=== PATIENT | male | born 1970 | race Two or more races ===

== ENCOUNTER 2022-04-25 11:45 | Inpatient (IN) | payer OTHER ==
[~2022-04-25] VITALS: Ht 165.1 cm; Wt 65.8 kg
[2022-04-26] MEDS ORDERED: CARVEDILOL6.25 MG (14:56)
[2022-04-26] MEDS ORDERED: NASAL MIST126 ML ×2 (14:56→14:57)
[2022-04-26] MEDS ORDERED: HYZAAR 50-12.51 EACH PO (14:57)
[2022-04-26] MEDS ORDERED: KEPRA PO (14:57)
[2022-04-29] MEDS ORDERED: KEPPRA1000 MG PO (09:32)
[2022-05-03] MEDS ORDERED: NEURONTIN300 MG PO (07:07)
[2022-05-03] MEDS ORDERED: PERCOCET 5-3251 EACH PO (07:07)
[2022-05-03] MEDS ORDERED: INTESTINEX680 M1 PO (07:08)
[2022-05-03] MEDS ORDERED: INTEGRA F CAPS1 EACH PO (08:24)
== END 2022-05-03 18:04 | disposition home or self-care (01) | DRG 329 ==
LOC: ADM 11:45 → EDSTATUS 04-26 12:45 → O/R 04-29 07:00 → SURG 04-29 10:45 → SURH 04-29 14:52
PROVIDERS: ADMIT Surgery; ATTEND Surgery
PROC: 0DBP4ZZ Excision of Rectum, Percutaneous Endoscopic Approach (ICD-10-PCS; 2022-04-29)
PROC: 0DTJ4ZZ Resection of Appendix, Percutaneous Endoscopic Approach (ICD-10-PCS; 2022-04-29)
PROC: 0DJD8ZZ Inspection of Lower Intestinal Tract, Via Natural or Artificial Opening Endoscopic (ICD-10-PCS; 2022-04-29)
PROC: 0DTN4ZZ Resection of Sigmoid Colon, Percutaneous Endoscopic Approach (ICD-10-PCS; principal; 2022-04-29 10:45)
DX: K57.20 Diverticulitis of large intestine with perforation and abscess without bleeding (principal); K65.1 Peritoneal abscess; K37 Unspecified appendicitis; D64.9 Anemia, unspecified; G40.909 Epilepsy, unspecified, not intractable, without status epilepticus; F17.200 Nicotine dependence, unspecified, uncomplicated; Z20.822 Contact with and (suspected) exposure to COVID-19

== ENCOUNTER 2023-10-14 13:34 | Emergency (ER) | payer OTHER ==
[~2023-10-14] VITALS: Ht 165.1 cm; Wt 72.6 kg
[~2023-10-14 13:34] MED LIST: CARVEDILOL6.25 MG; HYZAAR 50-12.51 EACH PO; INTEGRA F CAPS1 EACH PO; INTESTINEX680 M1 PO; KEPPRA1000 MG PO; KEPRA PO; NASAL MIST126 ML; NEURONTIN300 MG PO; PERCOCET 5-3251 EACH PO
[2023-10-14 15:47] LABS: HEMATOCRIT 45.9 % (39.0-48.0); HEMOGLOBIN 16.1 g/dL (13-16.00); MEAN CELL VOLUME 95.4 fL (80.0-100.00); MEAN CORPUSCULAR HEMOGLOBIN 33.5 pg (27.00-32.0); MEAN CORPUSCULAR HGB CONC 35.1 g/dl (32.0-36.0); PLATELET COUNT 337 K/uL (150-450); RED BLOOD COUNT 4.81 M/uL (4.00-6.00); RED CELL DISTRIBUTION WIDTH 13.4 % (11.5-14.5)
[2023-10-14 15:48] LABS: PH,URINE 6.5 (5.0-8.0); URINE APPEARANCE Clear; URINE BILIRRUBIN Negative (NEGATIVE); URINE BLOOD Negative; URINE COLOR Yellow; URINE GLUCOSE Negative (NEGATIVE); URINE LEUKOCYTE Negative; URINE NITRATE Negative; URINE PROTEIN Negative (NEGATIVE); URINE UROBILINOGEN 0.2 E.U./dl
[2023-10-14 15:49] LABS: URINE WBC 2.1 uL (0.0-23.2)
[2023-10-14 15:53] LABS: URINE RBC 0.5 uL (0.0-20.8)
[2023-10-14 16:08] LABS: CALCIUM 10.1 mg/dL (8.5-10.1); CREATININE SERUM 0.84 mg/dL (0.70-1.30); GFR 95.22; POTASSIUM 3.61 mEq/L (3.5-5.1)
== END 2023-10-14 18:49 | disposition home or self-care (01) ==
LOC: ER 13:35
PROVIDERS: Nurse Practitioner Family
DX: R10.9 Unspecified abdominal pain (principal); I10 Essential (primary) hypertension; Z88.6 Allergy status to analgesic agent
CPT/HCPCS: 36415; 74177; Q9965

== ENCOUNTER 2024-05-08 11:51 | Emergency (ER) | payer OTHER ==
[~2024-05-08] VITALS: Ht 165.1 cm; Wt 74.8 kg
[2024-05-08] MEDS ORDERED: TRELEGY ELLIPT1 EAC1 (12:13)
[2024-05-08] MEDS ORDERED: AVAPRO300 MG (12:15)
[2024-05-08] MEDS ORDERED: CHLORTHALIDONE25 MG (12:15)
[2024-05-08] MEDS ORDERED: DICY20TA (12:15)
[2024-05-08] MEDS ORDERED: ONDANSETRON HCL 2 MG/ML VIAL ONE (12:54)
[2024-05-08] MEDS ORDERED: FAMOTIDINE/PF 20 MG/2 ML VIAL ONE (12:54)
[2024-05-08] MEDS ORDERED: ONDANSETRON HCL 2 MG/ML VIAL IV ONE (13:00)
[2024-05-08] MEDS ORDERED: 0.9 % SODIUM CHLORIDE 1,000 ML IV ONE (13:00)
[2024-05-08] MEDS ORDERED: FAMOtidine 10 MG/ML (4ML VIAL) IV ONE (13:00)
[2024-05-08 13:26] LABS: HEMATOCRIT 40.5 % (39.0-48.0); HEMOGLOBIN 14.1 g/dL (13-16.00); MEAN CORPUSCULAR HEMOGLOBIN 33.1 pg (27.00-32.0); MEAN CORPUSCULAR HGB CONC 34.9 g/dl (32.0-36.0); PLATELET COUNT 360 K/uL (150-450); RED BLOOD COUNT 4.26 M/uL (4.00-6.00); RED CELL DISTRIBUTION WIDTH 13.6 % (11.5-14.5)
[2024-05-08 14:06] LABS: ALBUMIN 4.2 gm/dL (3.4-5.0); BILIRUBIN TOTAL 0.88 mg/dL (0.3-1.2); CALCIUM 10.3 mg/dL (8.5-10.1); CREATININE SERUM 0.77 mg/dL (0.70-1.30); GFR 104.89; GLOBULINA 4.5 G/DL (2.4-3.5); POTASSIUM 3.75 mEq/L (3.5-5.1); TOTAL PROTEIN 8.7 gm/dL (6.4-8.2)
[2024-05-08 14:27] LABS: URINE APPEARANCE Clear; URINE BILIRRUBIN Negative (NEGATIVE); URINE BLOOD Small; URINE COLOR Yellow; URINE GLUCOSE Negative (NEGATIVE); URINE KETONE Negative (NEGATIVE); URINE LEUKOCYTE Negative; URINE NITRATE Negative; URINE PROTEIN Negative (NEGATIVE); URINE UROBILINOGEN 0.2 E.U./dl
[2024-05-08 14:32] LABS: URINE BACTERIA 8.8 uL (0.0-1933); URINE WBC 2.4 uL (0.0-23.2)
== END 2024-05-08 17:16 | disposition home or self-care (01) ==
LOC: ER 11:53
PROVIDERS: General Practice
DX: K52.9 Noninfective gastroenteritis and colitis, unspecified (principal); I10 Essential (primary) hypertension; K40.90 Unilateral inguinal hernia, without obstruction or gangrene, not specified as recurrent; N20.0 Calculus of kidney; Z88.8 Allergy status to other drugs, medicaments and biological substances; Z87.09 Personal history of other diseases of the respiratory system

== ENCOUNTER 2024-06-14 07:45 | Inpatient (IN) | payer OTHER ==
[~2024-06-14] VITALS: Ht 165.1 cm; Wt 74.8 kg
[~2024-06-14 07:45] MED LIST changes: +AVAPRO300 MG; +CHLORTHALIDONE25 MG; +DICY20TA; +TRELEGY ELLIPT1 EAC1
--- NOTE | 2024-06-14 07:56 | NUR ---
PTE ALERTA Y ORIENTADO X3 EL CUAL AL [place] REFIERE VENIR POR DOLOR EN COSTADO DERECHO. PTE REFIERE QUE ES ATENDIDO POR DRA. BARRERA WIGGINS. SE MIDEN S/V Y SE UBICA.
[2024-06-14] MEDS ORDERED: PANTOPRAZOLE SODIUM 40 MG in 0.9 % SODIUM CHLORIDE 8 ML IV PUSH SCH (09:00)
[2024-06-14] MEDS ORDERED: ONDANSETRON HCL 2 MG/ML VIAL ONE (09:12)
[2024-06-14] MEDS ORDERED: ONDANSETRON HCL 2 MG/ML VIAL IV ONE (09:15)
[2024-06-14] MEDS ORDERED: 0.9 % SODIUM CHLORIDE 1,000 ML IV SCH (09:15)
[2024-06-14] MEDS ORDERED: MEPERIDINE HCL/PF 50 MG/ML VIAL IM ONE (09:15)
--- NOTE | 2024-06-14 09:31 | NUR ---
PTE ALERTA Y ORIENTADO X3, RN VIC EDUCA A PTE SOBRE [place] MEDICO, EL MISMO REFIERE ENTENDER. SE NATALI MUESTRAS DE LAB [facility] MEDIDAS ASEPTICAS Y SE ADMINISTRAN MEDICAMENTOS [facility]ERDA ORDEN MEDICA, SE NOTIFICA ESTUDIO PEDNIENTE.
[2024-06-14 09:36] LABS: HEMATOCRIT 37.8 % (39.0-48.0); HEMOGLOBIN 13.6 g/dL (13-16.00); MEAN CELL VOLUME 92.2 fL (80.0-100.00); MEAN CORPUSCULAR HEMOGLOBIN 33.2 pg (27.00-32.0); PLATELET COUNT 386 K/uL (150-450); RED CELL DISTRIBUTION WIDTH 13.4 % (11.5-14.5)
[2024-06-14 09:37] VITALS: BP 113/77; O2SAT 97
[2024-06-14 10:32] LABS: PARTIAL THROMBOPLASTIN TIME 28.2 SECONDS (22.0-34.0); PROTHROMBIN TIME 10.9 SECONDS (9.0-11.5)
[2024-06-14 10:35] LABS: ALBUMIN 3.7 gm/dL (3.4-5.0); ALKALINE PHOSPHATASE 77 U/L (50-136); ALT/SGPT 33 U/L (12-78); AMYLASE 51 U/L (25-115); ANION GAP 9 (10.0-20.0); AST/SGOT 18 U/L (15-37); BILIRUBIN TOTAL 0.35 mg/dL (0.3-1.2); BILIRUBIN,CONJUGATED < 0.10 mg/dL (0.0-0.2); BILIRUBIN,UNCONJUGATED 0.25 mg/dL (0.0-0.6); BLOOD UREA NITROGEN 16 mg/dL (7-18); BUN CREA RATIO 22 (7.0-25.0); CALCIUM 9.3 mg/dL (8.5-10.1); CARBON DIOXIDE 31 mEq/L (21-32); CHLORIDE 95 mmol/L (98-107); CREATININE SERUM 0.74 mg/dL (0.70-1.30); GFR 109.81; GLOBULINA 3.8 G/DL (2.4-3.5); GLUCOSE FASTING 88 mg/dL (65-100); LIPASE 34 U/L (13-75); OSMOLALITY SERUM 265 MOSM/KG (275-295); POTASSIUM 3.33 mEq/L (3.5-5.1); SODIUM 132 mmol/L (136-145); TOTAL PROTEIN 7.5 gm/dL (6.4-8.2)
[2024-06-14 14:31] VITALS: BP 108/79; O2SAT 98
[2024-06-14 16:00] VITALS: BP 124/75; O2SAT 96
[2024-06-14] MEDS ORDERED: LevETIRAcetam 500 MG TAB. PO SCH (17:00)
[2024-06-15 02:15] VITALS: BP 99/61; O2SAT 98
[2024-06-15 08:46] VITALS: BP 119/83; O2SAT 97
[2024-06-15] MEDS ORDERED: DICYCLOMINE HCL 20 MG TABLET PO SCH (09:00)
[2024-06-15] MEDS ORDERED: IRBESARTAN 300 MG TABLET PO SCH (09:00)
[2024-06-15] MEDS ORDERED: fentaNYL CITRATE 50 MCG/ML AMPUL IV ONE (13:15)
[2024-06-15] MEDS ORDERED: MIDAZOLAM HCL 2 MG/2 ML VIAL IV ONE (13:15)
[2024-06-15 17:52] VITALS: BP 116/69; BP 98/67; O2SAT 97
== END 2024-06-15 21:06 | disposition home or self-care (01) | DRG 395 ==
LOC: ER 07:47 → SEC-K 09:39 → SURH 09:39
PROVIDERS: General Practice; ADMIT Surgery; ATTEND Surgery
PROC: CF1C1ZZ Planar Nuclear Medicine Imaging of Hepatobiliary System, All using Technetium 99m (Tc-99m) (ICD-10-PCS; principal; 2024-06-14)
PROC: 0DB98ZX Excision of Duodenum, Via Natural or Artificial Opening Endoscopic, Diagnostic (ICD-10-PCS; 2024-06-15)
PROC: 0DB78ZX Excision of Stomach, Pylorus, Via Natural or Artificial Opening Endoscopic, Diagnostic (ICD-10-PCS; 2024-06-15)
DX: D13.2 Benign neoplasm of duodenum (principal); D13.1 Benign neoplasm of stomach; Z20.822 Contact with and (suspected) exposure to COVID-19; F17.200 Nicotine dependence, unspecified, uncomplicated; G40.909 Epilepsy, unspecified, not intractable, without status epilepticus; I11.9 Hypertensive heart disease without heart failure; G47.30 Sleep apnea, unspecified; D46.9 Myelodysplastic syndrome, unspecified; R10.9 Unspecified abdominal pain; K52.9 Noninfective gastroenteritis and colitis, unspecified; R10.11 Right upper quadrant pain